=== PATIENT | female | born 1975 ===

== ENCOUNTER 2016-11-30 13:57 | Emergency (ER) | payer MEDICAID ==
[2016-11-30 16:13] VITALS: BMI 34.9
[2016-11-30 16:45] LABS: BASO # 0.1 K/uL (0.0-0.2); BASO % 0.6 % (0.0-2.0); EOS # 0.1 K/uL (0.0-0.7); EOS % 1.3 % (0.0-4.0); LYMPH # 2.3 K/uL (1.0-4.3); LYMPH % 21.8 % (20.0-40.0); MEAN CORPUSCULAR HEMOGLOBIN 31.8 pg (27.0-31.0); MEAN CORPUSCULAR HGB CONC 33.8 g/dL (33.0-37.0); MEAN PLATELET VOLUME 9.3 fl (7.2-11.7); MONO # 0.8 K/uL (0.0-0.8); MONO % 7.6 % (0.0-10.0); NEUT # 7.2 K/uL (1.8-7.0); NEUT % 68.7 % (50.0-75.0); RED CELL DISTRIBUTION WIDTH 14.7 % (11.5-14.5); WHITE BLOOD COUNT 10.5 K/uL (4.8-10.8)
[2016-11-30 17:06] LABS: ALB/GLOB RATIO 1.1 (1.0-2.1); ALKALINE PHOSPHATASE 96 U/L (38-126); ALT/SGPT 35 U/L (9-52); AST/SGOT 30 U/L (14-36); BILIRUBIN,TOTAL 0.4 mg/dl (0.2-1.3); BLOOD UREA NITROGEN 6 mg/dl (7-17); CALCIUM 8.7 mg/dL (8.4-10.2); CARBON DIOXIDE 20 mmol/L (22-30); CHLORIDE 106 mmol/L (98-107); GFR AFRICAN-AMERICAN > 60; GLUCOSE,RANDOM 79 mg/dL (65-105); POTASSIUM 4.1 MMOL/L (3.6-5.0); SODIUM 135 mmol/l (132-148); TOTAL PROTEIN 6.7 G/DL (6.3-8.2)
[2016-11-30 17:16] LABS: RBC URINE 2 /hpf (0-3); URINE BACTERIA RARE (<OCC); URINE BILIRUBIN NEGATIVE (NEGATIVE); URINE BLOOD NEGATIVE (NEGATIVE); URINE COLOR YELLOW (YELLOW); URINE GLUCOSE (UA) NEG (Normal); URINE KETONE NEGATIVE (NEGATIVE); URINE LEUKOCYTE ESTERASE NEG Leu/uL (Negative); URINE PROTEIN NEGATIVE (NEGATIVE); WBC URINE 1 /hpf (0-5)
--- NOTE | 2016-11-30 18:18 | OBHP ---
Datetime: 11/30/2016 16:16 IP Adm Impression: Term, intrauterine IP Admit Plan: Observation/Evaluation Admit Comment, IP Provider: 40 YO F edc 12/07/16 by LMP _ 21wk us presents with c/o pelvic press ure and light vag spotting. She denies ctxs or srom. She denies h/a, scotomata, ruq pain, n/v, ctxs or decreased fm. - POBHx: NSVDx2, SABx2, AMA - PMH: none - PSH: Gastric Bypass 2014- Laparoscopic MEDIC: PNV, VIT D, FESO4 SHX: denies etoh, drugs or tobacco NKDA I: 39wks Intemittent Elev BP P: cbc, cmp, ldh, ua serial bp addendum: labs nl; ua neg p: d/w pt induction due to 39wk gest, ama nd intermittent elev bps. she states she will return to [place]. she states she is feeling ctxs and would like tosee if onset of labor is occurring. Pelvic Type - PN: Adequate Extremities - PN: Normal Abdomen - PN: Normal Back - PN: Normal Lungs - PN: Normal Heart - PN: Abnormal Neurologic - PN: Normal HEENT - PN: Normal General - PN: Normal Presentation-Admit: Vertex FHR - Baseline A Provider: 130 Membranes, Provider: Intact Contraction Comments Provider: occasional Comments, ACOG Physical Exam: HepBneg HIV,RPR neg ri 24hr urine on 05/19 294g gbs neg EGA AdmitDate IP: 39.0 Vital Signs Provider: Reviewed Vital Signs Provider Details: intermittent elev bp IP Chief Complaint: Vaginal bleeding NICHD Variability Prov Fetus A: Moderate 6-25bpm NICHD Accel Fetus A IP Provider: 15X15 FHR Category Provider Fetus A: Category I NICHD Decel Fetus A IP Provider: None Dilatation, Provider: 0 Effacement, Provider: 20 Station, Provider: -3 Genitourinary Exam: Normal Datetime: 08/31/2016 00:25 Pool Provider: Negative
[2016-12-01] MEDS ORDERED: Lidocaine 1% Inj (20ml) ONE (09:00)
[2016-12-01] MEDS ORDERED: Oxytocin 30 units/LR 500ML 60 U/1,000 ML BAG IV ONE (09:00)
== END 2016-11-30 18:25 | disposition home or self-care (01) ==
LOC: H.EROB2 13:57
DX: O47.1 False labor at or after 37 completed weeks of gestation (principal); Z3A.39 39 weeks gestation of pregnancy

== ENCOUNTER 2016-12-01 01:22 | Inpatient (IN) | payer MEDICAID ==
[2016-12-01 05:28] VITALS: BMI 33.6
[2016-12-01] MEDS ORDERED: Nalbuphine 20 mg/ml Inj (1 ml) IVP PRN (05:32)
[2016-12-01] MEDS ORDERED: Nalbuphine 20 mg/ml Inj (10 ml) IVP PRN (06:00)
[2016-12-01] MEDS ORDERED: Lactated Ringer's 1,000 ML IV SCH (08:00)
--- NOTE | 2016-12-01 08:04 | OBHP ---
Datetime: 12/01/2016 08:03 IP Adm Impression: Term, intrauterine IP Admit Plan: Admit to unit; Initiate labor protocol EGA AdmitDate IP: 39.1 IP Chief Complaint: Uterine contractions; Suspected ruptured membranes Dilatation, Provider: 3 Effacement, Provider: 80 Datetime: 12/01/2016 03:22 Admit Comment, IP Provider: 40 YO @39.1 weeks w/ a edc 12/07/16 by LMP _ 21 wks us presents was here earlier today for pelvic pressure and vaginal spoting and was planing on returning tonight for i nduction of labor, but returned to the hospital after having increased intensity and frequency of ct x's. Pt states her ctx were occuring 5 min apart. She felt she also noticed some loss of fluid from the vagina but was not large in quantity. - Has + FM - POBHX: 2 , SAB x2, AMA - PMH: None - PSH: Gastric Bypass - 2014 - Med: PNV, Vit D, Iron sulfate SHX: Denies ETOH, Drugs, or tobacco A:40 YO @39.1 weeks w/ edc 12/07/16 presents for increase in intensity and frequency of ctx. P: Continuous monitoring OBH ADDENDUM: pt seen _ examined. agree with above assessment and plan. Pelvic Type - PN: Adequate Extremities - PN: Normal Breast - PN: Normal Lungs - PN: Normal Heart - PN: Normal Neurologic - PN: Normal HEENT - PN: Normal General - PN: Normal FHR - Baseline A Provider: 140 Contraction Comments Provider: 3-4 Pool Provider: Negative Nitrazine Provider: Negative Vital Signs Provider: Reviewed; Within Normal Limits NICHD Variability Prov Fetus A: Moderate 6-25bpm NICHD Accel Fetus A IP Provider: 15X15 FHR Category Provider Fetus A: Category I NICHD Decel Fetus A IP Provider: None Station, Provider: -3 Genitourinary Exam: Normal Datetime: 11/30/2016 16:16 Comments, ACOG Physical Exam: HepBneg HIV,RPR neg ri 24hr urine on 05/19 294g gbs neg unofficial bedside us: grossly nl darlene
[2016-12-01 08:05] VITALS: BP 141/92; PULSE 74; RESP 20; TEMP 98.3; O2SAT 100
--- NOTE | 2016-12-01 08:13 | OBADHP ---
Datetime: 12/01/2016 08:03 Pelvic Type - PN: Adequate Extremities - PN: Normal Abdomen - PN: Normal Lungs - PN: Normal Neurologic - PN: Normal HEENT - PN: Normal General - PN: Normal Presentation-Admit: Vertex FHR - Baseline A Provider: 120 Contraction Comments Provider: 3-5min Comments, ACOG Physical Exam: SSE: BLOOD TINGED MUCOUS PER CERV OS; no fluid noted Vital Signs Provider: Reviewed Vital Signs Provider Details: 119/76- 149/92 IP Chief Complaint: Uterine contractions; Suspected ruptured membranes NICHD Variability Prov Fetus A: Moderate 6-25bpm NICHD Accel Fetus A IP Provider: 15X15 FHR Category Provider Fetus A: Category I NICHD Decel Fetus A IP Provider: None Dilatation, Provider: 3 Effacement, Provider: 80 Station, Provider: -2 Genitourinary Exam: Normal EGA AdmitDate IP: 39.1 IP Adm Impression: Term, intrauterine IP Admit Plan: Admit to unit; Initiate labor protocol Datetime: 12/01/2016 03:22 Admit Comment, IP Provider: 40 YO @39.1 weeks w/ a edc 12/07/16 by LMP _ 21 wks us presents was here earlier today for pelvic pressure and vaginal spoting and was planing on returning tonight for i nduction of labor, but returned to the hospital after having increased intensity and frequency of ct x's. Pt states her ctx were occuring 5 min apart. She felt she also noticed some loss of fluid from the vagina but was not large in quantity. - Has + FM - POBHX: 2 , SAB x2, AMA - PMH: None - PSH: Gastric Bypass - 2014 - Med: PNV, Vit D, Iron sulfate SHX: Denies ETOH, Drugs, or tobacco A:40 YO @39.1 weeks w/ edc 12/07/16 presents for increase in intensity and frequency of ctx. P: Continuous monitoring OBH ADDENDUM: pt seen _ examined. She denies h/a, scotmata, ruq pain or visual disturbances. agree with above assessment and plan. Breast - PN: Normal Heart - PN: Normal Pool Provider: Negative Nitrazine Provider: Negative Datetime: 11/30/2016 16:16 Back - PN: Normal Membranes, Provider: Intact
[2016-12-01 08:27] LABS: BASO % 0.2 % (0.0-2.0); EOS # 0.1 K/uL (0.0-0.7); EOS % 0.9 % (0.0-4.0); HEMATOCRIT 40.2 % (34.0-47.0); LYMPH # 2.8 K/uL (1.0-4.3); LYMPH % 23.3 % (20.0-40.0); MEAN CELL VOLUME 94.3 fl (81.0-99.0); MEAN CORPUSCULAR HEMOGLOBIN 32.2 pg (27.0-31.0); MEAN CORPUSCULAR HGB CONC 34.1 g/dL (33.0-37.0); MEAN PLATELET VOLUME 9.4 fl (7.2-11.7); MONO # 0.8 K/uL (0.0-0.8); MONO % 6.6 % (0.0-10.0); NEUT # 8.2 K/uL (1.8-7.0); NRBC % 0.2 % (0.0-0.0); RED CELL DISTRIBUTION WIDTH 14.3 % (11.5-14.5); WHITE BLOOD COUNT 11.8 K/uL (4.8-10.8)
[2016-12-01] MEDS: Lactated Ringer's 1,000 ML IV SCH ×2 (09:30→10:30)
[2016-12-01] MEDS ORDERED: Oxytocin 30 units/LR 500ML 30 U/500 ML BAG IV ONE (10:28)
[2016-12-01] MEDS ORDERED: Fentanyl/Bupivacaine HCl 250 ML EPI ONE (11:46)
[2016-12-01] MEDS: Oxytocin 30 units/LR 500ML 30 U/500 ML BAG IV SCH ×5 (13:05→15:31)
[2016-12-01] MEDS ORDERED: Oxycodone/Acetaminophen 5/325 mg Tab PO PRN ×3 (13:13→16:25)
--- NOTE | 2016-12-01 13:26 | OBDS ---
MATERNAL INFORMATION Provider Comments: Delivered a live baby boy at 1 PM. The baby Was suctioned on the [facility]ineum [facility] The cord was clamped and cut 3 vessels noted, cord blood was obtained and sent to lab. The placenta was delivered at 1:03 PM intact, the estimated blood loss was 150 mL there were no vaginal lacerations. The mother tolerated the procedure well the baby was well baby nursery with Apgars of 99 LABOR SUMMARY EDC: 12/07/2016 00:00 No. Babies in Womb: 1 LABOR INFORMATION Onset of Labor: 12/01/2016 01:00 Group B Beta Strep: Negative MEMBRANES Membranes Rupture Method: Spontaneous Rupture of Membranes: 12/01/2016 07:29 Amniotic Fluid Color: Clear Amniotic Fluid Amount: Small Amniotic Fluid Odor: Normal VAGINAL DELIVERY Episiotomy: None Laceration Extension: N/A Laceration Type: None Laceration Repair: Not Applicable Sponge Count Correct: Yes Sharps Count Correct: N/A
[2016-12-01] MEDS: Oxycodone/Acetaminophen 5/325 mg Tab PO PRN ×2 (17:32→22:03)
[2016-12-01] MEDS: Lansinoh for Breast Feeding Mothers TP SCH (22:03)
[2016-12-02] MEDS: Lansinoh for Breast Feeding Mothers TP SCH ×4 (04:00→21:51)
[2016-12-02] MEDS: Oxycodone/Acetaminophen 5/325 mg Tab PO PRN ×4 (05:21→20:53)
[2016-12-02 07:32] LABS: HEMATOCRIT 35.8 % (34.0-47.0); MEAN CELL VOLUME 93.6 fl (81.0-99.0); MEAN CORPUSCULAR HEMOGLOBIN 31.7 pg (27.0-31.0); MEAN CORPUSCULAR HGB CONC 33.9 g/dL (33.0-37.0); RED CELL DISTRIBUTION WIDTH 14.6 % (11.5-14.5)
[2016-12-03] MEDS: Oxycodone/Acetaminophen 5/325 mg Tab PO PRN (04:54)
[2016-12-03] MEDS: Lansinoh for Breast Feeding Mothers TP SCH ×3 (04:57→10:00)
--- NOTE | 2016-12-03 11:48 | OBDCSUM ---
Datetime: 12/03/2016 05:28 Discharged to, Provider: Home Follow up at, Provider: [facility] Disch Instr Activity: Normal activity Disch Instr Diet: Regular Discharge Instructions, Provider: Routine instructions given Discharge Diagnosis, Provider: Term Delivered Discharge Time: 12/03/2016 11:00 Follow up in weeks, Provider: 2-3 days Disch Referrals: None Contraception discussed, Prov: Yes Disch Activity Restrictions: No sexual activity; Nothing in vagina - [place], tampons, douche Discharge Comment, Provider: the patient was seen with the resident I agree with the notes patient c leared for discharge Contraception after Delivery: Foam/Condoms
--- NOTE | 2016-12-03 11:48 | OBPPN ---
Datetime: 12/03/2016 05:29 PP Pain Prov: Within normal limits PP Nausea Prov: Denies PP Flatus Prov: Yes PP BM Prov: Yes PP Breasts Prov: Normal PP Heart Prov: Normal PP Lungs Prov: Normal PP Abdomen/Uterus Prov: Normal PP Lochia Prov: Normal PP Vulva/Perineum Prov: Normal PP CVA Tenderness Prov: Normal PP Extremities Prov: Normal PP Impression Prov: Normal progression PP Plan Prov: Continue present management; Discharge PP Progress Note Prov: DOA: 12/01 EGA: 39.1 Dx: uncomplicated at term L_D summary DOD: 12/01 @13:00 NB: male apgars: 9,9 weight: 2855gm no complications during . CBC : pending D/C: 12/03 @ 11:00am Instructions: Encourge PNV 1 tab po q/day Ibuprofen 600mg 1 tab PO PRN Q6H mild/moderate pain Ambulation with caution, nothing per vagina, no heavy lifting. If excessive bleeding or fever with out relief from medications report to ED. F/U @ [facility] Emigdio Rordiguez MD PGY1 @ 5:36 am The patient was seen with the resident I agree with the note patient cleared for discharge IP PP Procedures: None Vital Signs Provider PP: Reviewed; Within Normal Limits Datetime: 12/02/2016 05:37 PP C/S Incision Prov: Not Applicable PP Progress Prov: Normal PP Comments Phys Exam Prov: Fundus firm at level of umbilicus
== END 2016-12-03 14:38 | disposition home or self-care (01) | DRG 373 ==
LOC: H.EROB2 01:22 → H.L&D 07:36 → H.OB/GYN 15:35
PROVIDERS: ADMIT Obstetrics & Gynecology; ATTEND Obstetrics & Gynecology
PROC: 10E0XZZ Delivery of Products of Conception, External Approach (ICD-10-PCS; principal; 2016-12-01)
PROC: 4A1HXCZ Monitoring of Products of Conception, Cardiac Rate, External Approach (ICD-10-PCS; 2016-12-01)
DX: O99.844 Bariatric surgery status complicating childbirth (principal); J45.909 Unspecified asthma, uncomplicated; O99.52 Diseases of the respiratory system complicating childbirth; Z37.0 Single live birth; Z3A.39 39 weeks gestation of pregnancy